=== PATIENT | male | born 1965 | race African-American/Black ===

== ENCOUNTER 2016-09-14 13:35 | Emergency (ER) | payer SELFPAY ==
[2017-03-14] MEDS ORDERED: HYDROCHLOROT25 MG PO (01:29)
[2017-03-14] MEDS ORDERED: COZ50 PO (01:31)
[2017-03-15] MEDS ORDERED: NORV5 (11:05)
== END 2016-09-14 13:39 | disposition home or self-care (01) ==
LOC: ER 13:35
DX: S20.211A Contusion of right front wall of thorax, initial encounter (principal); I10 Essential (primary) hypertension; W19.XXXA Unspecified fall, initial encounter
CPT/HCPCS: 71100-RT; 99283; A9270-GY